=== PATIENT | male | born 1965 | race Caucasian/White ===

== ENCOUNTER → 2018-11-20 | Outpatient (CLI) | payer OTHER | LOC: CAT 11-15 10:06 | DX: K45.8 Other specified abdominal hernia without obstruction or gangrene (principal); N28.1 Cyst of kidney, acquired; K80.20 Calculus of gallbladder without cholecystitis without obstruction; Z98.84 Bariatric surgery status; R10.84 Generalized abdominal pain ==

== ENCOUNTER → 2019-12-06 | Outpatient (CLI) | payer OTHER | LOC: CAT 08:42 | DX: K43.2 Incisional hernia without obstruction or gangrene (principal); K80.20 Calculus of gallbladder without cholecystitis without obstruction; Z98.890 Other specified postprocedural states ==